=== PATIENT | female | born 1945 | race Caucasian/White ===

== ENCOUNTER 2019-07-01 23:23 | Emergency (ER) | payer OTHER ==
[~2019-07-01] VITALS: Ht 154.9 cm; Wt 68.0 kg
[2019-07-01 23:48] VITALS: BP 154/66; Ht 154.9 cm; Wt 68.0 kg
== END 2019-07-02 01:10 | disposition home or self-care (01) ==
LOC: ED 23:23
DX: S43.005A Unspecified dislocation of left shoulder joint, initial encounter (principal); W01.0XXA Fall on same level from slipping, tripping and stumbling without subsequent striking against object, initial encounter; Y93.89 Activity, other specified; Y92.89 Other specified places as the place of occurrence of the external cause; Y99.8 Other external cause status